=== PATIENT | female | born 1975 | race Caucasian/White ===

== ENCOUNTER 2023-07-22 21:37 | Emergency (ER) | payer OTHER ==
[2023-07-22 22:36] VITALS: BP 97/67; PULSE 60; RESP 16; TEMP 97.8; BMI 25.0
[2023-07-22] MEDS ORDERED: ACETAMINOPHEN 325 MG TABLET (FP) ONE (22:48)
== END 2023-07-22 23:13 | disposition home or self-care (01) ==
LOC: FER 21:37
DX: G44.209 Tension-type headache, unspecified, not intractable (principal)
CPT/HCPCS: 99283-25